=== PATIENT | female | born 1975 | race Caucasian/White ===

== ENCOUNTER → 2019-04-23 | Outpatient (CLI) | payer BC, OTHER | LOC: BC 13:46 | DX: Z12.31 Encounter for screening mammogram for malignant neoplasm of breast (principal) ==

== ENCOUNTER → 2019-11-16 | Outpatient (CLI) | payer BC, OTHER | LOC: ULTRA 08:49 | DX: R10.11 Right upper quadrant pain (principal) ==

== ENCOUNTER → 2019-11-23 | Outpatient (CLI) | payer BC, OTHER ==
[~2019-11-23] MED LIST: AMBIEN 10 MG TA10 MG PO; FOLIC ACID1 MG PO; HUMIRA PEN40 MG/0.4 SUBQ; LIPITOR20 MG PO; MELOXICAM15 MG PO; METHOTREXATE 22.5 M1 PO; OMEPRAZOLE40 MG PO; VITAMIN D32000 UNI2 PO
== END ==
LOC: NUC 07:30
DX: R10.11 Right upper quadrant pain (principal)

== ENCOUNTER 2019-12-05 05:43 | Day surgery (SDC) | payer BC, OTHER ==
[~2019-12-05] VITALS: Ht 162.6 cm; Wt 86.2 kg
--- NOTE | ~2019-12-05 | O ---
[facility] [address] OPERATIVE REPORT Name: JOE HARPER Room #: 150-1 [facility] M.R.#: [id number] Admission: 12/05/19 Attend Phys: Sanjay Shipman MD Discharge: Date of : 75 Report #: [id number] THIS REPORT FOR: cc: Lesia Alfonso DNP, Mary E. DNP Joseph, Sigi P. MD ~ CC: Lesia Shipman DATE OF SERVICE: 12/05/2019 PREOPERATIVE DIAGNOSIS: Biliary dyskinesia. POSTOPERATIVE DIAGNOSIS: Biliary dyskinesia. OPERATIVE PROCEDURE DONE: Laparoscopic cholecystectomy. OPERATING SURGEON: Sanjay Shipman MD INDICATIONS FOR THE PROCEDURE: The patient is a 44-year-old female who presented with complaints of recurrent episodes of right upper quadrant pain that she has been having. Clinical exam and ultrasound scan that was done showed features of biliary dyskinesia with ejection fraction. Clinical exam and HIDA scan showed features of biliary dyskinesia with ejection fraction of 23%. The patient was advised laparoscopic cholecystectomy. The patient showed understanding and agreed to proceed. DESCRIPTION OF PROCEDURE: After explaining to the patient in detail and informed consent was obtained, the patient was identified in the preoperative holding area. The patient was transferred to the operating room and was placed in supine position. Sequential compressive devices were placed for DVT prophylaxis. Preoperative antibiotics were given. After induction of anesthesia, the abdomen was prepped and draped in a sterile fashion. Through a right upper quadrant 1 cm incision and using Optiview technique, the peritoneal cavity was entered and pneumoperitoneum was created, so thereafter under direct vision, another 5 mm trocar was placed through a supraumbilical incision, another 5 mm trocar was placed in the epigastrium and one in the right lateral subcostal region. Stopped on initial inspection, the gallbladder appeared normal. The gallbladder was retracted and the peritoneal reflections along the neck of the gallbladder was gently dissected off. Cystic duct was identified and was isolated from the surrounding structures. Cystic artery was identified and isolated from the surrounding structures. Cystic duct was then double clipped proximally and single clipped applied distally and was then divided. Cystic artery also was then divided in a similar fashion. The gallbladder was gently dissected off the liver bed using hook electrocautery. [address] [address] OPERATIVE REPORT Name: JOE HARPER Room #: 150-1 [facility]..#: [id number] Admission: 12/05/19 Attend Phys: Sanjay Shipman MD Discharge: Date of : 75 Report #: [id number] hemostasis was achieved. Thorough saline irrigation was given. The gallbladder was retrieved using an EndoCatch through the lateral most incision. Incisions were then closed with 4-0 Monocryl. The lateral incision was closed with 0 Vicryl for the fascia. Skin was closed with 4-0 Monocryl for all the incisions. Dermabond was applied. The patient was stable at the end of the procedure. The patient was awoken from anesthesia and was transferred to the recovery room in stable condition. ESTIMATED BLOOD LOSS: Approximately 25 mL. CONDITION OF THE PATIENT: Stable. FLUIDS GIVEN: Per anesthesia notes. SPECIMEN SENT: Gallbladder. COMPLICATIONS: None. ANESTHESIA: General anesthesia. By: [id number] Sanjay Shipman MD /nt
[2019-12-05 06:47] VITALS: BP 108/56
[2019-12-05] MEDS ORDERED: NORCO 5-325 TA1 EAC1 PO (07:56)
[2019-12-05 08:16] VITALS: BP 108/56
--- NOTE | 2019-12-06 16:07 | PATH ---
[facility] [address] [place] [address] PATHOLOGY RPT PROCEDURE Name: JOE HARPER Room #: DEP [facility] M.R.#: [id number] Admission: 12/05/19 Date of : 75 Discharge: 12/05/19 Report #: [id number] Path Case #: [id number] [facility] Accession Number: [id number] . 01 Material submitted: . gallbladder - GALLBLADDER . 01 Clinical history: . Calculus of gallbladder without cholecystitis without obstruction . 02 Diagnosis: Gallbladder, cholecystectomy: - Mild chronic cholecystitis. (IUV/db; 12/06/2019) LBQ 12/06/2019 1254 Local . 02 Electronically signed: . Ronel Watson MD, Pathologist NPI- [id number] . 01 Gross description: . The specimen is received in formalin labeled "[place], Joe, gallbladder" and consists of a previously opened pink chávez smooth shiny gallbladder measuring 4.8 x 2.8-0.8 cm. The margin is inked black. No calculi are identified within the gallbladder lumen or container. The mucosa is green-brown and granular to velvety with an average wall thickness of 0.1 cm. No masses are identified. Epic [facility] sections are submitted in A1. (SDY; 12/05/2019) SYU/SYU 12/05/2019 1720 Local . 02 Pathologist provided ICD-10: K81.1 . 02 CPT . 383623 Specimen Comment: A courtesy copy of this report has been sent to [phone], [phone] Specimen Comment: [phone] Specimen Comment: Report sent to / DR REYES Performed at: [address] [id number] MD Michael Lora MD Phone: [phone] Performed at: [address] [id number] [address] [address] PATHOLOGY RPT PROCEDURE Name: JOE HARPER STEVEN Room #: DEP [facility] M.RBebo#: [id number] Admission: 12/05/19 Date of : 75 Discharge: 12/05/19 Report #: [id number] Path Case #: [id number] MD Ronel Watson MD Phone: [phone]
== END 2019-12-05 09:20 | disposition home or self-care (01) ==
LOC: OR 05:43 → TBA 05:45 → OR 06:33
DX: K81.1 Chronic cholecystitis (principal); R10.11 Right upper quadrant pain; K21.9 Gastro-esophageal reflux disease without esophagitis; Z98.890 Other specified postprocedural states; Z79.899 Other long term (current) drug therapy
CPT/HCPCS: 50010; 50101; 50249; 50411; 50555; 51489; 52265; 52266; 54022; 54118; 55245; 56462; 56525; 56526; 57257; 62110; 62900; 70005

== ENCOUNTER → 2020-08-20 | Outpatient (CLI) | payer BC, OTHER ==
[~2020-08-20] MED LIST changes: +NORCO 5-325 TA1 EAC1 PO
== END ==
LOC: CAT 11:35
PROVIDERS: ATTEND Nurse Practitioner
DX: K31.4 Gastric diverticulum (principal); N83.202 Unspecified ovarian cyst, left side; R31.9 Hematuria, unspecified; M19.90 Unspecified osteoarthritis, unspecified site; Z79.899 Other long term (current) drug therapy; Z90.49 Acquired absence of other specified parts of digestive tract; Z97.5 Presence of (intrauterine) contraceptive device